=== PATIENT | male | born 1965 | race Caucasian/White ===

== ENCOUNTER 2018-01-26 12:27 | Inpatient (IN) | payer MEDICAID, OTHER ==
[~2018-01-26] VITALS: Ht 160 cm; Wt 58.1 kg
[2018-01-26 13:20] LABS: BASOPHILS % (AUTO) 0.2 % (0.0-2.0); EOSINOPHILS % (AUTO) 1.3 % (1.0-6.0); HEMATOCRIT 42.5 % (41-53); HEMOGLOBIN 14.8 g/dL (13.5-17.5); LYMPHOCYTES # (AUTO) 1.2 K/uL (1.0-4.8); LYMPHOCYTES % (AUTO) 12.5 % (22.0-44.0); MEAN CORPUSCULAR HEMOGLOBIN 31.7 pg (26.0-34.0); MEAN CORPUSCULAR HGB CONC 34.8 G/dL (31.0-37.0); MEAN CORPUSCULAR VOLUME 91 fL (80-100); MONOCYTES # (AUTO) 0.6 K/uL (0.1-1.0); MONOCYTES % (AUTO) 6.8 % (2.0-9.0); NEUTROPHILS # (AUTO) 7.5 K/uL (1.8-7.7); NEUTROPHILS % (AUTO) 79.2 % (40.0-70.0); PLATELET COUNT (AUTO) 442 K/uL (150-450); RED BLOOD CELL COUNT(AUTO) 4.66 MIL/uL (4.50-5.90); RED CELL DISTRIBUTION WIDTH 13.3 % (11.5-14.5)
[2018-01-26 13:30] LABS: ANION GAP 1 mmol/L (8-16); CARBON DIOXIDE 33 mmol/L (22-29); CHLORIDE 107 mmol/L (98-107); CREATININE 0.63 mg/dL (0.60-1.30); GLOMERULAR FILTR. RATE CALC > 60 mL/min (>60); GLUCOSE,RANDOM 116 mg/dL (70-110); POTASSIUM 4.2 mmol/L (3.5-5.1); SODIUM SERUM 141 mmol/L (136-145); UREA NITROGEN, BLOOD 17 mg/dL (7-18)
[2018-01-26] MEDS ORDERED: HALOPERIDOL LACTATE 5 MG/ML VIAL IM ONE (13:30)
[2018-01-26] MEDS ORDERED: LORazepam 2 MG/ML VIAL IM ONE (13:30)
[2018-01-26] MEDS ORDERED: DiphenhydrAMINE HCL 50 MG/ML VIAL IM ONE (13:30)
[2018-01-26 13:36] LABS: ALANINE AMINOTRANSFERASE 46 U/L (12-78); ALBUMIN 3.3 g/dL (3.4-5.0); ALKALINE PHOSPHATASE 66 U/L (46-116); ASPARTATE AMINOTRANSFERASE 27 U/L (15-37); BILIRUBIN,TOTAL 0.4 mg/dL (0.1-1.0); TOTAL PROTEIN, SERUM 6.9 g/dL (6.4-8.2)
[2018-01-26 23:24] LABS: APPEARANCE,URINE CLEAR (CLEAR); BILIRUBIN,URINE NEGATIVE (NEGATIVE); GLUCOSE, URINE (UA) NEGATIVE (NEGATIVE); KETONES,URINE NEGATIVE (NEGATIVE); LEUKOCYTE ESTERASE ,URINE NEGATIVE (NEGATIVE); NITRATE,URINE NEGATIVE (NEGATIVE); OCCULT BLOOD,URINE NEGATIVE (NEGATIVE); PH,URINE 6.5 (5.0-8.0); PROTEIN,URINE NEGATIVE (NEGATIVE); UROBILINOGEN,URINE 0.2 mg/dL (<=1.0)
[2018-01-26 23:28] LABS: AMPHET/METH SCREEN,URINE NEGATIVE (NEGATIVE); BARBITURATE SCREEN, URINE NEGATIVE (NEGATIVE); BENZODIAZEPINES SCREEN,URINE NEGATIVE (NEGATIVE); CANNABINOID SCREEN,URINE NEGATIVE (NEGATIVE); COCAINE SCREEN,URINE NEGATIVE (NEGATIVE); METHADONE SCREEN, URINE NEGATIVE (NEGATIVE); OPIATE SCREEN,URINE NEGATIVE (NEGATIVE)
[2018-01-26 23:37] LABS: PHENCYCLIDINE SCREEN,URINE NEGATIVE (NEGATIVE)
[2018-01-27] MEDS ORDERED: LORazepam 2 MG/ML VIAL IM ONE (07:45)
[2018-01-27] MEDS ORDERED: DiphenhydrAMINE HCL 50 MG/ML VIAL IM ONE (07:45)
[2018-01-27] MEDS ORDERED: HALOPERIDOL LACTATE 5 MG/ML VIAL IM ONE (07:45)
[2018-01-27] MEDS ORDERED: RisperiDONE 1 MG TABLET PO ONE (09:00)
[2018-01-27 09:14] LABS: CHOL/HDL RATIO 3.4 (4.2-7.3)
[2018-01-27 16:05] VITALS: BP 120/73
[2018-01-27] MEDS ORDERED: NICOTINE 14 MG/24 HOUR PATCH TD PRN (16:45)
[2018-01-27] MEDS ORDERED: MAGNESIUM HYDROXIDE SUSPENSION 30 ML UDCUP PO PRN (16:45)
[2018-01-27] MEDS ORDERED: MAG HYDROX/AL HYDROX/SIMETH ES 30 ML SUSPENSION UDCUP PO PRN (16:45)
[2018-01-27] MEDS ORDERED: CloNIDine HCL 0.1 MG TABLET PO PRN (16:45)
[2018-01-27] MEDS ORDERED: DOCUSATE SODIUM 100 MG CAPSULE PO PRN (16:45)
[2018-01-27] MEDS ORDERED: ACETAMINOPHEN 325 MG TABLET PO PRN (16:45)
[2018-01-27] MEDS ORDERED: GuaiFENesin/D-METHORPHAN [SUGAR-FREE] 200-20MG/10 ML SYRUP UDCUP PO PRN (16:45)
[2018-01-27] MEDS ORDERED: PETROLATUM,WHITE 71 GM JELLY TP PRN (16:45)
[2018-01-27] MEDS ORDERED: ALBUTEROL SULFATE HFA 90 MCG/PUFF 8 GM INHALER IH PRN (16:45)
[2018-01-27] MEDS ORDERED: IBUPROFEN 400 MG TABLET PO PRN (16:45)
[2018-01-27] MEDS ORDERED: LOPERAMIDE HCL 2 MG CAPSULE PO PRN (16:45)
[2018-01-27] MEDS ORDERED: ONDANSETRON HCL 4 MG TABLET PO PRN (16:45)
[2018-01-27] MEDS: BACITRACIN 28.4 GM OINTMENT TP SCH (17:15)
[2018-01-27] MEDS: ZOLPIDEM TARTRATE 10 MG TABLET PO PRN (20:50)
[2018-01-28 06:10] VITALS: BP 118/65
[2018-01-28 07:51] LABS: HEMOGLOBIN A1C 5.5 % (4.5-6.2)
[2018-01-28 08:02] LABS: CHOL/HDL RATIO 3.5 (4.2-7.3); THYROID STIMULATING HORMONE 0.85 uIU/mL (0.36-3.74)
[2018-01-28 08:25] VITALS: BP 106/63
[2018-01-28] MEDS: BACITRACIN 28.4 GM OINTMENT TP SCH ×2 (09:07→17:06)
[2018-01-28] MEDS: RisperiDONE 2 MG TABLET PO SCH ×2 (11:46→21:15)
[2018-01-28] MEDS: BENZTROPINE MESYLATE 0.5 MG TABLET PO SCH ×2 (11:47→21:15)
[2018-01-28 16:13] VITALS: BP 120/67
[2018-01-28] MEDS: HALOPERIDOL 5 MG TABLET PO PRN (17:06)
[2018-01-28] MEDS: ZOLPIDEM TARTRATE 10 MG TABLET PO PRN (21:15)
[2018-01-29 00:23] VITALS: BP 118/78
[2018-01-29 08:00] VITALS: BP 113/80
[2018-01-29] MEDS: RisperiDONE 2 MG TABLET PO SCH ×2 (08:05→21:03)
[2018-01-29] MEDS: BENZTROPINE MESYLATE 0.5 MG TABLET PO SCH ×2 (08:05→21:03)
[2018-01-29] MEDS: BACITRACIN 28.4 GM OINTMENT TP SCH ×2 (08:07→17:11)
[2018-01-29 16:27] VITALS: BP 109/68
[2018-01-29] MEDS: HALOPERIDOL 5 MG TABLET PO PRN (17:11)
[2018-01-30 01:08] VITALS: BP 112/75
[2018-01-30 08:38] VITALS: BP 118/63
[2018-01-30] MEDS: BACITRACIN 28.4 GM OINTMENT TP SCH ×2 (08:58→16:00)
[2018-01-30] MEDS: RisperiDONE 2 MG TABLET PO SCH ×2 (08:58→20:56)
[2018-01-30] MEDS: BENZTROPINE MESYLATE 0.5 MG TABLET PO SCH ×2 (08:58→20:56)
[2018-01-30] MEDS: LORazepam 2 MG TABLET PO PRN (16:00)
[2018-01-30 16:43] VITALS: BP 118/65
[2018-01-30] MEDS: ZOLPIDEM TARTRATE 10 MG TABLET PO PRN (20:56)
[2018-01-31 00:41] VITALS: BP 126/84
[2018-01-31 08:00] VITALS: BP 114/66
[2018-01-31] MEDS: BENZTROPINE MESYLATE 0.5 MG TABLET PO SCH ×2 (08:10→20:15)
[2018-01-31] MEDS: BACITRACIN 28.4 GM OINTMENT TP SCH ×2 (08:10→17:10)
[2018-01-31] MEDS: RisperiDONE 2 MG TABLET PO SCH ×2 (08:10→20:15)
[2018-01-31] MEDS: HALOPERIDOL 5 MG TABLET PO PRN (16:08)
[2018-01-31] MEDS: LORazepam 2 MG TABLET PO PRN (16:08)
[2018-01-31 17:24] VITALS: BP 112/72
[2018-01-31] MEDS: ZOLPIDEM TARTRATE 10 MG TABLET PO PRN (20:15)
[2018-02-01 00:05] VITALS: BP 115/77
[2018-02-01 08:08] VITALS: BP 110/68
[2018-02-01 08:22] VITALS: BP 112/64
[2018-02-01] MEDS: BENZTROPINE MESYLATE 0.5 MG TABLET PO SCH ×2 (08:40→20:29)
[2018-02-01] MEDS: RisperiDONE 2 MG TABLET PO SCH ×2 (08:40→20:30)
[2018-02-01] MEDS: BACITRACIN 28.4 GM OINTMENT TP SCH ×2 (08:42→17:04)
[2018-02-01] MEDS: LORazepam 2 MG TABLET PO PRN ×2 (13:14→17:17)
[2018-02-01] MEDS: HALOPERIDOL 5 MG TABLET PO PRN ×2 (13:14→17:17)
[2018-02-01 16:30] VITALS: BP 114/76
[2018-02-01] MEDS: ZOLPIDEM TARTRATE 10 MG TABLET PO PRN (20:30)
[2018-02-02 01:31] VITALS: BP 103/67
[2018-02-02] MEDS: BENZTROPINE MESYLATE 0.5 MG TABLET PO SCH ×2 (08:23→20:07)
[2018-02-02] MEDS: RisperiDONE 2 MG TABLET PO SCH ×2 (08:23→20:07)
[2018-02-02 08:52] VITALS: BP 110/63
[2018-02-02] MEDS: BACITRACIN 28.4 GM OINTMENT TP SCH ×2 (09:08→17:04)
[2018-02-02] MEDS: LORazepam 2 MG TABLET PO PRN (16:11)
[2018-02-02] MEDS: HALOPERIDOL 5 MG TABLET PO PRN (16:11)
[2018-02-02 16:12] VITALS: BP 122/71
[2018-02-02] MEDS: ZOLPIDEM TARTRATE 10 MG TABLET PO PRN (20:07)
[2018-02-03 04:15] VITALS: BP 120/86
[2018-02-03 08:16] VITALS: BP 102/64
[2018-02-03] MEDS: RisperiDONE 2 MG TABLET PO SCH ×2 (08:31→20:39)
[2018-02-03] MEDS: BACITRACIN 28.4 GM OINTMENT TP SCH ×2 (08:31→17:03)
[2018-02-03] MEDS: BENZTROPINE MESYLATE 0.5 MG TABLET PO SCH ×2 (08:31→20:38)
[2018-02-03 16:36] VITALS: BP 114/74
[2018-02-03] MEDS: HALOPERIDOL 5 MG TABLET PO PRN (17:02)
[2018-02-03] MEDS: LORazepam 2 MG TABLET PO PRN (17:03)
[2018-02-03] MEDS: ZOLPIDEM TARTRATE 10 MG TABLET PO PRN (20:38)
[2018-02-04 01:03] VITALS: BP 125/72
[2018-02-04 08:41] VITALS: BP 104/60
[2018-02-04] MEDS: RisperiDONE 2 MG TABLET PO SCH (09:55)
[2018-02-04] MEDS: BACITRACIN 28.4 GM OINTMENT TP SCH (09:55)
[2018-02-04] MEDS: BENZTROPINE MESYLATE 0.5 MG TABLET PO SCH (09:55)
[2018-02-04] MEDS ORDERED: BENZ2AMP2 PO ×2 (14:39→14:42)
[2018-02-04] MEDS ORDERED: RISP1TAB89 PO ×2 (14:40→14:43)
== END 2018-02-04 15:40 | disposition home or self-care (01) | DRG 750 ==
LOC: EMS 12:27 → B3A 01-27 13:40 → B2S 01-31 08:15
DX: F20.0 Paranoid schizophrenia (principal); Z59.0 Homelessness; G47.00 Insomnia, unspecified; Z79.899 Other long term (current) drug therapy; Z87.891 Personal history of nicotine dependence; Z23 Encounter for immunization
CPT/HCPCS: 83036; 84443; 87081; 90686; 96372; G0480; J1200; J1630; J2060